=== PATIENT | female | born 1975 | race Two or more races ===

== ENCOUNTER 2021-02-14 08:49 | Emergency (ER) | payer OTHER ==
[~2021-02-14] VITALS: Ht 160 cm; Wt 74.1 kg
[2021-02-14 09:05] VITALS: BP 122/78
== END 2021-02-14 10:46 | disposition home or self-care (01) ==
LOC: EMS 08:49
DX: Z11.1 Encounter for screening for respiratory tuberculosis (principal); Z91.018 Allergy to other foods
CPT/HCPCS: 71045; 99283

== ENCOUNTER 2021-05-28 20:50 | Emergency (ER) | payer OTHER ==
[~2021-05-28] VITALS: Ht 147.3 cm; Wt 70.5 kg
[2021-05-28 22:15] LABS: BASOPHILS % (AUTO) 0.1 % (0.0-2.0); EOSINOPHILS % (AUTO) 1.5 % (1.0-6.0); HEMATOCRIT 39.7 % (36-46); HEMOGLOBIN 13.3 g/dL (12.0-16.0); LYMPHOCYTES # (AUTO) 2.5 K/uL (1.0-4.8); LYMPHOCYTES % (AUTO) 46.4 % (22.0-44.0); MEAN CORPUSCULAR HEMOGLOBIN 30.3 pg (26.0-34.0); MEAN CORPUSCULAR HGB CONC 33.6 G/dL (31.0-37.0); MEAN CORPUSCULAR VOLUME 90 fL (80-100); MONOCYTES # (AUTO) 0.5 K/uL (0.1-1.0); MONOCYTES % (AUTO) 8.7 % (2.0-9.0); NEUTROPHILS # (AUTO) 2.3 K/uL (1.8-7.7); NEUTROPHILS % (AUTO) 43.3 % (40.0-70.0); PLATELET COUNT (AUTO) 258 K/uL (150-450); RED CELL DISTRIBUTION WIDTH 13.2 % (11.5-14.5)
[2021-05-28 22:27] LABS: ANION GAP 8 mmol/L (8-16); CALCIUM, TOTAL 8.8 mg/dL (8.8-10.5); CARBON DIOXIDE 29 mmol/L (22-29); CHLORIDE 104 mmol/L (98-107); CREATININE 0.64 mg/dL (0.60-1.30); GLOMERULAR FILTR. RATE CALC > 60 mL/min (>60); GLUCOSE,RANDOM 110 mg/dL (70-110); POTASSIUM 3.4 mmol/L (3.5-5.1); SODIUM SERUM 141 mmol/L (136-145); UREA NITROGEN, BLOOD 8 mg/dL (7-18)
[2021-05-28 22:38] LABS: ALANINE AMINOTRANSFERASE 40 U/L (12-78); ALBUMIN 3.8 g/dL (3.4-5.0); ALKALINE PHOSPHATASE 82 U/L (46-116); ASPARTATE AMINOTRANSFERASE 18 U/L (15-37); BILIRUBIN,TOTAL 0.5 mg/dL (0.1-1.0); HCG,QUANTITATIVE 1 mIU/mL (0-6); TOTAL PROTEIN, SERUM 7.2 g/dL (6.4-8.2)
[2021-05-28] MEDS ORDERED: METOCLOPRAMIDE HCL 10 MG TABLET PO ONE (22:45)
[2021-05-28] MEDS ORDERED: ACETAMINOPHEN 325 MG TABLET PO ONE (22:45)
[2021-05-29 00:13] VITALS: BP 134/90
== END 2021-05-29 00:54 | disposition home or self-care (01) ==
LOC: EMS 20:54
DX: G43.909 Migraine, unspecified, not intractable, without status migrainosus (principal); R11.2 Nausea with vomiting, unspecified; Z91.018 Allergy to other foods
CPT/HCPCS: 36415; 80053; 84702; 85025; 93005; 99285; G0480